=== PATIENT | male | born 1945 | race Caucasian/White ===

== ENCOUNTER 2023-08-08 15:16 | Outpatient (CLI) | payer MEDICARE, SELFPAY | END 2023-08-08 15:17 | disposition home or self-care (01) | PROVIDERS: PCP Nurse Practitioner; Visit Provider Nurse Practitioner | DX: C61 Malignant neoplasm of prostate (principal) | CPT/HCPCS: 72195 ==

== ENCOUNTER 2023-08-27 11:40 | Outpatient (CLI) | payer MEDICARE, SELFPAY ==
[2023-08-27 12:29] LABS: Appearance Urine Clear (Clear); Bilirubin Urine Negative (Negative); Blood Urine Negative (Negative); Color Urine Yellow (Yellow); Glucose Urine 2+ (Negative); Ketones Urine Negative (Negative); Protein Urine Negative (Negative); Specific Gravity Urine < 1.005 (1.000-1.030); pH Urine 5.5 (5.0-8.5)
[2023-08-27 12:30] LABS: Leukocyte Esterase Urine Negative (Negative); Nitrite Urine Negative (Negative); RBC Urine 0-2 (0-2); Squamous Epithelial Cell Urine Few (None-Few); Urobilinogen Urine 0.2 (0.2-1.0); WBC Urine 0-2 (0-5)
== END 2023-08-27 11:41 | disposition home or self-care (01) ==
PROVIDERS: PCP Nurse Practitioner; Visit Provider Nurse Practitioner
DX: R30.0 Dysuria (principal)
CPT/HCPCS: 81001; 87086